=== PATIENT | male | born 1975 | race Caucasian/White ===

== ENCOUNTER 2017-05-05 13:28 | Emergency (ER) | payer BC ==
--- NOTE | 2017-05-05 13:55 | EDM.PDOC ---
ED HPI GENERAL MEDICAL PROBLEM - General Chief Complaint: Chest Pain Stated Complaint: CHEST PAIN Time Seen by Provider: 05/05/17 13:55 - History of Present Illness INITIAL COMMENTS - FREE TEXT/NARRATIVE: 41-year-old male presents emergency room with chest pain. Patient was out cutting this morning and developed some chest discomfort shortly before 10:00. The patient was feel dressing and no and developed significant chest discomfort rated it at a 10 over 10. This had a significant crushing component to it. The pain did not radiate into his neck however he had pain into both arms. After the pain started the patient proceeded to pack his backpack that approximately 100 pounds of meat in his backpack and started to pack this out he carried a pack for about an hour and a half along the way he developed nausea and vomiting. At this point he realized that this was not given a work he unloaded his pack carried is gone out and came to the hospital. At this point his pain is down to about a 3 the crushing component is gone. Patient has never had any heart problems he does not smoke. He does have significant family history his mother developed coronary artery disease and had her first DE in her 40s. Chest Pain Score (Numeric/FACES): 6 - Related Data Allergies Allergy/AdvReac Type Severity Reaction Status Date / Time Penicillins Allergy Swelling Verified 05/05/17 13:40 Home Meds: Home Meds . [No Known Home Meds] 05/05/17 [History] Past Medical History Cardiovascular History: Reports: High Cholesterol Respiratory History: Reports: Asthma - Past Surgical History GI Surgical History: Reports: Other (See Below) Other GI Surgeries/Procedures: gastric sleeve Social & Family History - Tobacco Use Smoking Status *Q: Never Smoker - Caffeine Use Caffeine Use: Reports: Coffee - Recreational Drug Use Recreational Drug Use: No ED ROS GENERAL - Review of Systems Review Of Systems: See Below Constitutional: Reports: No Symptoms HEENT: Reports: No Symptoms Respiratory: Reports: No Symptoms Cardiovascular: Reports: Chest Pain Endocrine: Reports: No Symptoms GI/Abdominal: Reports: No Symptoms : Reports: No Symptoms Skin: Reports: No Symptoms Neurological: Reports: No Symptoms Psychiatric: Reports: No Symptoms ED EXAM, GENERAL - Physical Exam Exam: See Below Exam Limited By: No Limitations General Appearance: Alert, No Apparent Distress Head: Atraumatic, Normocephalic Neck: Normal Inspection, Supple, Non-Tender, Full Range of Motion, Other (No JVD noted). No: Lymphadenopathy (L), Lymphadenopathy (R) Respiratory/Chest: No Respiratory Distress, Lungs Clear, Normal Breath Sounds Cardiovascular: Regular Rate, Rhythm, No Edema, No Murmur GI/Abdominal: Normal Bowel Sounds, Soft, Non-Tender Course - Vital Signs Last Recorded V/S: Last Vital Signs Temp 36.1 C 05/05/17 13:35 Pulse 105 H 05/05/17 13:35 Resp 20 05/05/17 13:35 BP 118/77 05/05/17 14:36 Pulse Ox 100 05/05/17 13:35 - Orders/Labs/Meds Orders: Active Orders 24 hr Category Date Time Status EKG 12 Lead [EKG Documentation Completion] [RC] STAT Care 05/05/17 13:44 Active Lactated Ringers [Ringers, Lactated] 1,000 ml Med 05/05/17 14:15 Active IV ASDIRECTED Medication Orders Lactated Ringer's (Ringers, Lactated) 1,000 mls @ 50 mls/hr IV ASDIRECTED SANDY Last Admin: 05/05/17 14:27 Dose: 50 mls/hr Labs: Laboratory Tests 05/05/17 05/05/17 05/05/17 Range/Units 13:55 13:55 13:55 WBC 13.70 H (4.23-9.07) K/mm3 RBC 5.17 (4.63-6.08) M/mm3 Hgb 14.5 (13.7-17.5) gm/L Hct 43.4 (40.1-51.0) % MCV 83.9 (79.0-92.2) fl MCH 28.0 (25.7-32.2) pg MCHC 33.4 (32.2-35.5) g/dl RDW Std Deviation 43.2 (35.1-43.9) fL Plt Count 256 (163-337) K/mm3 MPV 11.2 (9.4-12.3) fl Neutrophils % (Manual) 83 H (40-60) % Band Neutrophils % 0 (0-10) % Lymphocytes % (Manual) 12 L (20-40) % Atypical Lymphs % 0 % Monocytes % (Manual) 4 (2-10) % Eosinophils % (Manual) 1 (0.8-7.0) % Basophils % (Manual) 0 L (0.2-1.2) Platelet Estimate Adequate Plt Morphology Comment Normal RBC Morph Comment Normal PT 10.8 (8.0-13.0) SECONDS INR 0.99 APTT 24 (22-36) SECONDS Sodium 138 (136-145) mEq/L Potassium 3.8 (3.5-5.1) mEq/L Chloride 102 (98-107) mEq/L Carbon Dioxide 23 (21-32) mEq/L Anion Gap 16.8 H (5-15) BUN 16 (7-18) mg/dL Creatinine 1.4 H (0.7-1.3) mg/dL Est Cr Clr Drug Dosing 75.44 mL/min Estimated GFR (MDRD) 56 (>60) mL/min BUN/Creatinine Ratio 11.4 L (14-18) Glucose 92 (74-106) mg/dL Calcium 9.2 (8.5-10.1) mg/dL Total Bilirubin 0.6 (0.2-1.0) mg/dL AST 31 (15-37) U/L ALT 34 (16-63) U/L Alkaline Phosphatase 73 (46-116) U/L Troponin I 0.031 (0.00-0.056) ng/mL Total Protein 7.5 (6.4-8.2) g/dl Albumin 4.1 (3.4-5.0) g/dl Globulin 3.4 gm/dL Albumin/Globulin Ratio 1.2 (1-2) 05/05/17 Range/Units 16:30 WBC (4.23-9.07) K/mm3 RBC (4.63-6.08) M/mm3 Hgb (13.7-17.5) gm/L Hct (40.1-51.0) % MCV (79.0-92.2) fl MCH (25.7-32.2) pg MCHC (32.2-35.5) g/dl RDW Std Deviation (35.1-43.9) fL Plt Count (163-337) K/mm3 MPV (9.4-12.3) fl Neutrophils % (Manual) (40-60) % Band Neutrophils % (0-10) % Lymphocytes % (Manual) (20-40) % Atypical Lymphs % % Monocytes % (Manual) (2-10) % Eosinophils % (Manual) (0.8-7.0) % Basophils % (Manual) (0.2-1.2) Platelet Estimate Plt Morphology Comment RBC Morph Comment PT (8.0-13.0) SECONDS INR APTT (22-36) SECONDS Sodium (136-145) mEq/L Potassium (3.5-5.1) mEq/L Chloride (98-107) mEq/L Carbon Dioxide (21-32) mEq/L Anion Gap (5-15) BUN (7-18) mg/dL Creatinine (0.7-1.3) mg/dL Est Cr Clr Drug Dosing mL/min Estimated GFR (MDRD) (>60) mL/min BUN/Creatinine Ratio (14-18) Glucose (74-106) mg/dL Calcium (8.5-10.1) mg/dL Total Bilirubin (0.2-1.0) mg/dL AST (15-37) U/L ALT (16-63) U/L Alkaline Phosphatase (46-116) U/L Troponin I 0.037 (0.00-0.056) ng/mL Total Protein (6.4-8.2) g/dl Albumin (3.4-5.0) g/dl Globulin gm/dL Albumin/Globulin Ratio (1-2) Meds: Medications Generic Name Dose Route Start Last Admin Trade Name Freq PRN Reason Stop Dose Admin Lactated Ringer's 1,000 mls @ 50 mls/hr 05/05/17 14:15 05/05/17 14:27 Ringers, Lactated IV 50 mls/hr ASDIRECTED SANDY Administration Discontinued Medications Generic Name Dose Route Start Last Admin Trade Name Freq PRN Reason Stop Dose Admin Aspirin 324 mg 05/05/17 14:14 05/05/17 14:25 Aspirin PO 05/05/17 14:15 324 mg ONETIME ONE Administration Nitroglycerin 0.4 mg 05/05/17 14:14 05/05/17 14:36 Nitrostat SL 0.4 mg Q5M PRN Administration Chest Pain - Re-Assessments/Exams Free Text/Narrative Re-Assessment/Exam: 05/05/17 18:16 Patient's pain was resolved after a single nitroglycerin 80s remained pain free labs reviewed troponin was within the normal range a second troponin was checked and it was 0.031 well within the normal range. A little after 2 hours after this was obtained a second troponin was obtained this was 0.037 again well within the normal range. He's remained pain free at this time. Chest x-ray nonrevealing EKG no acute ischemia. Case reviewed with Dr. Phoenix on-call for cardiology at [facility] in [place] as the patient lives in [place] who agrees the patient can go home but needs a stress test Monday and they could probably see him in the clinic to go over the results of the stress test Monday. The patient will be discharged on a baby aspirin daily. Departure - Departure Time of Disposition: 18:19 Disposition: Home, Self-Care 01 Clinical Impression: Chest pain Referrals: PCP,Not In Area [Primary Care Provider] - Forms: ED Department Discharge Additional Instructions: Return to the emergency room with any questions problems or worsening symptoms. Someone from [facility] in [place] or our emergency room here in [place] should contact you with information about a stress test to be set up on Monday. Start an enteric-coated baby aspirin, this is 81 mg, 1 daily. - My Orders Last 24 Hours: My Active Orders 05/05/17 13:44 EKG 12 Lead [EKG Documentation Completion] [RC] STAT 05/05/17 14:15 Lactated Ringers [Ringers, Lactated] 1,000 ml IV ASDIRECTED - Assessment/Plan Last 24 Hours: My Active Orders 05/05/17 13:44 EKG 12 Lead [EKG Documentation Completion] [RC] STAT 05/05/17 14:15 Lactated Ringers [Ringers, Lactated] 1,000 ml IV ASDIRECTED
[2017-05-05] MEDS ORDERED: Aspirin 81 MG Tab.Chew PO ONE (14:14)
[2017-05-05] MEDS ORDERED: Lactated Ringers 1,000 ML IV SCH (14:15)
[2017-05-05] MEDS: Nitroglycerin 0.4 MG Tab.SL SL PRN ×3 (14:26→14:36)
--- NOTE | 2017-05-05 14:32 | CR ---
Chest: Portable view of the chest was obtained. Comparison: No previous study. Heart size and mediastinum are normal. Lungs are clear. Bony structures are grossly intact. Impression: 1. Nothing acute is identified on portable chest x-ray. Diagnostic code #1
== END 2017-05-05 18:27 | disposition home or self-care (01) ==
LOC: JD.ED 13:28
DX: R07.89 Other chest pain (principal); E78.00 Pure hypercholesterolemia, unspecified; Z88.0 Allergy status to penicillin
CPT/HCPCS: 36415; 71010; 80053; 84484; 85025; 85610; 85730; 93005; 96360; 96361; 99285; A9270; J7120; 93010; 99284-25